=== PATIENT | male | born 1990 | race Caucasian/White ===

== ENCOUNTER 2019-04-29 15:56 | Emergency (ER) | payer SELFPAY ==
[~2019-04-29] VITALS: Ht 160 cm; Wt 89.0 kg
[~2019-04-29 15:56] MED LIST: IBUP800T48 PO
[2019-04-29 16:01] VITALS: BP 146/80; PULSE 80; RESP 18; Ht 160 cm; Wt 89.0 kg
[2019-04-29] MEDS ORDERED: IBUPROFEN 800 MG TAB PO ONE (17:00)
== END 2019-04-29 17:26 | disposition home or self-care (01) ==
LOC: FTE 15:56
DX: S00.212A Abrasion of left eyelid and periocular area, initial encounter (principal); V43.62XA Car passenger injured in collision with other type car in traffic accident, initial encounter
CPT/HCPCS: 99282